=== PATIENT | male | born 1950 | race African-American/Black ===

== ENCOUNTER 2022-01-28 05:32 | Day surgery (SDC) | payer OTHER ==
[2022-01-26 10:11] LABS: COVID AG,FIA SOURCE NASAL SWAB
[~2022-01-28] VITALS: Ht 180.3 cm; Wt 95.4 kg
[~2022-01-28 05:32] MED LIST: ALBU8HFA IH; FAMO20 PO; FLUT16H NASAL; FLUT1BLS IH; HYDR25TA2 PO; METO50 PO; MONT-35 PO; SENN8.6T20 PO; VALS160T2 PO
[2022-01-28] MEDS ORDERED: LIDOCAINE 2% 5 ML JELLY TP ONE (05:33)
[2022-01-28] MEDS ORDERED: BENZOCAINE 20% 50 MCG/SPRAY 57 GM TP ONE (05:33)
[2022-01-28] MEDS ORDERED: LIDOCAINE 4% 50 ML SOLUTION TP ONE (05:33)
[2022-01-28] MEDS ORDERED: SODIUM CHLORIDE 0.9% 1,000 ML ONE ×2 (06:23→06:50)
[2022-01-28] MEDS ORDERED: SODIUM CHLORIDE 0.9% 1,000 ML IV ONE (06:30)
[2022-01-28] MEDS ORDERED: MIDAZOLAM HCL 5 MG/ML VIAL ONE (07:42)
[2022-01-28] MEDS ORDERED: FentaNYL CITRATE PF 100 MCG/2 ML VIAL ONE (07:42)
[2022-01-28] MEDS ORDERED: MethylPREDNISolone SOD SUCC 125 MG/2 ML VIAL IVP ONE (09:15)
[2022-01-28] MEDS ORDERED: MethylPREDNISolone SOD SUCC 125 MG/2 ML VIAL ONE (09:32)
== END 2022-01-28 10:55 | disposition home or self-care (01) ==
LOC: SURGERY 05:32
PROVIDERS: ATTEND Internal Medicine Critical Care Medicine
DX: R05.3 Chronic cough (principal); J44.9 Chronic obstructive pulmonary disease, unspecified; I25.2 Old myocardial infarction; Z79.899 Other long term (current) drug therapy; Z98.890 Other specified postprocedural states; Z87.891 Personal history of nicotine dependence; Z72.89 Other problems related to lifestyle; Z86.73 Personal history of transient ischemic attack (TIA), and cerebral infarction without residual deficits
CPT/HCPCS: 31623; 31624; 71045; 87015; 87070; 87101; 87206; 87220; 87426; 88112; 88184; 88185; 88312; 93005; C9803; J2250; J2930; J3010; J7030; 88305; Z7610

== ENCOUNTER 2023-03-08 06:26 | Day surgery (SDC) | payer OTHER ==
[~2023-03-08] VITALS: Ht 180.3 cm; Wt 91.3 kg
[~2023-03-08 06:26] MED LIST changes: +ALBU18HF12 IH; -ALBU8HFA IH; -FLUT16H NASAL; +FLUT16SP NASAL
[2023-03-08] MEDS ORDERED: LIDOCAINE 4% 50 ML SOLUTION TP ONE (06:27)
[2023-03-08] MEDS ORDERED: LIDOCAINE 2% 11 ML JELLY TP ONE (06:27)
[2023-03-08] MEDS ORDERED: BENZOCAINE 20% 50 MCG/SPRAY 57 GM TP ONE (06:27)
[2023-03-08] MEDS ORDERED: SODIUM CHLORIDE 0.9% 1,000 ML IV ONE (07:00)
[2023-03-08] MEDS ORDERED: SODIUM CHLORIDE 0.9% 1,000 ML ONE (07:35)
[2023-03-08] MEDS ORDERED: FLUT1BLS15 (07:46)
[2023-03-08] MEDS ORDERED: MIDAZOLAM HCL 2 MG/2 ML VIAL ONE (08:03)
[2023-03-08] MEDS ORDERED: FentaNYL CITRATE PF 100 MCG/2 ML VIAL ONE (08:03)
[2023-03-08] MEDS ORDERED: MethylPREDNISolone SOD SUCC 125 MG/2 ML VIAL ONE (09:13)
[2023-03-08] MEDS ORDERED: MethylPREDNISolone SOD SUCC 125 MG/2 ML VIAL IVP ONE (10:00)
== END 2023-03-08 11:40 | disposition home or self-care (01) ==
LOC: SURGERY 06:26
PROVIDERS: ATTEND Internal Medicine Critical Care Medicine
DX: J38.4 Edema of larynx (principal); B37.0 Candidal stomatitis; F12.90 Cannabis use, unspecified, uncomplicated; Z72.89 Other problems related to lifestyle; Z98.890 Other specified postprocedural states; Z95.5 Presence of coronary angioplasty implant and graft; Z79.899 Other long term (current) drug therapy; J44.9 Chronic obstructive pulmonary disease, unspecified; I25.2 Old myocardial infarction
CPT/HCPCS: 31623; 88112; 87206; 87101; 87220; 87070; 31624; 71045; 87015; J3010; J2250; J2930; Q9967; J7030; Z7610